=== PATIENT | male | born 1975 | race Caucasian/White ===

== ENCOUNTER 2021-11-14 15:28 | Emergency (ER) | payer OTHER, MEDICAID, SELFPAY ==
--- NOTE | 2021-11-14 15:31 | ED.ABDPAIN ---
HPI - Abdominal Pain General Chief Complaint: Abdominal Pain Stated Complaint: abd pain Time Seen by Provider: 11/14/21 15:31 Source: patient Mode of arrival: ambulatory Limitations: no limitations History of Present Illness HPI narrative: Mr. Carmona is a 46-year-old male patient presenting to the clinic today with complaints of epigastric pain x1 month. He reports that he has had some nausea and vomiting with this as well. Reports the pain is worse approximately 1 hour after he is eating. Last bowel movement was this morning was normal formed. He denies any blood in his stool or any tarry stools. States the pain is a sharp pain that changes in intensity. Pain is worse approximately 1 hour after eating. He is a current tobacco user and reports drinking 2-3 beers per night. He denies any fever or chills. He denies any blood in his vomit. Related Data Home Medications Medication Instructions Recorded Confirmed omeprazole 20 mg capsule,delayed 20 mg PO DAILY 11/14/21 11/14/21 release Allergies Allergy/AdvReac Type Severity Reaction Status Date / Time No Known Allergies Allergy Verified 11/14/21 15:49 Review of Systems Review of Systems: Pertinent positives per HPI. Patient denies any fever, chills, rash, headache, visual changes, dizziness, cough, runny nose, sore throat, shortness of breath, chest pain, palpitations, diarrhea, constipation, or any urinary issues. PMFSH Comments At the time of my signature, I reviewed and agree with the nursing past medical, surgical, social, and family history. There is no relevant family history pertinent to the patient complaint. Exam Narrative: General: Well-developed, well nourished, in no apparent distress. Head: Normocephalic, atraumatic. Cardio: Regular rate and rhythm, s1 and s2 normal, no murmur appreciated. Resp: Clear to auscultation bilaterally, no rhonchi, rales, wheezing or rubs. Abdomen: Soft, pliable, bowel sounds present in all quadrants,tender to palpation over the mid epigastric area, no organomegly, no CVAT tenderness. Course Course Emergency Course: Portions of this record may have been created with voice recognition software. Level of Care: Express Care Visit Vital Signs Vital signs: Vital signs reviewed MDM - Abdominal Pain MDM Narrative Medical decision making narrative: At the time of visit patient is resting comfortably on the exam table. I suspect the patient has mid epigastric abdominal pain with probable duodenal ulcer. Prescription sent for Carafate and Protonix. I will also send in a prescription for some Zofran for nausea. Recommend follow-up with PCP to discuss possible GI referral and H. pylori testing. Supportive measures were discussed with the patient he voiced understanding of discharge instructions and agrees to treatment plan.. Differential Diagnosis Differential diagnosis: Likely abdominal pain, constipation, small bowel obstruction and other (Peptic ulcer disease, duodenal ulcer) Discharge Plan Discharge Clinical Impression: Epigastric abdominal pain, Duodenal ulcer Patient Disposition: Home, Self-Care Condition: Stable Instructions: Antibiotic Form, Peptic Ulcer (ED), Epigastric Pain (ED) Additional Instructions: Take Protonix, carafate, and zofran as prescribed. Avoid taking any NSAIDs Avoid smoking and drinking alcohol Increase fluids and stay well hydrated Eat a bland diet- avoid fatty, acidic, or spicy foods. May take tylenol as needed for pain. Follow up with your PCP next week for further evaluation- recommend getting tested for H-pylori- possibly need GI referral. Go to the ED if symptoms worsen. Prescriptions: New pantoprazole [Protonix] 40 mg tablet,delayed release (DR/EC) 40 mg PO HS 28 Days Qty: 28 0RF sucralfate [Carafate] 1 gram tablet 1 g PO Q4H 30 Days Qty: 180 0RF Rx Instructions: AC&HS ondansetron 4 mg tablet,disintegrating 4 mg PO Q6H
[2021-11-14 15:35] VITALS: BP 138/88; PULSE 98; RESP 18; TEMP 36.5; O2SAT 100
== END 2021-11-14 16:13 | disposition home or self-care (01) ==
PROVIDERS: Emergency Provider Nurse Practitioner Family
DX: R10.13 Epigastric pain (principal); K26.9 Duodenal ulcer, unspecified as acute or chronic, without hemorrhage or perforation; K21.9 Gastro-esophageal reflux disease without esophagitis
CPT/HCPCS: 99203; G0463